=== PATIENT | female | born 1960 | race Caucasian/White ===

== ENCOUNTER 2021-12-20 13:38 | Emergency (ER) | payer BC, OTHER ==
[2021-12-20] MEDS ORDERED: FAMOTIDINE 20 MG (PEPCID) TABLET PO ONE (14:15)
[2021-12-20] MEDS ORDERED: predniSONE 20 MG TAB PO ONE (14:15)
[2021-12-20] MEDS ORDERED: IOHEXOL 350 MG/ML 100 ML (OMNIPAQUE 350) VIAL IV ONE (15:30)
[2021-12-20] MEDS ORDERED: NS 100 ML (IVPB) BAG IV ONE (15:30)
[2021-12-20] MEDS ORDERED: HOLD METFORMIN - RECEIVED CONTRAST 20 ML VIAL IV SCH (15:30)
--- NOTE | 2021-12-20 15:39 | ED General ---
General Chief Complaint: Allergic Reaction Stated Complaint: ANAPHYLAXIS Nursing Triage Note: PT REPORTS SHE HAD AN ALLERGIC REACTION TO CLINDAMYCIN YESTERDAY. HER EYES HAD SWOLLEN SHUT AND HER THROAT FELT WEIRD. SHE WENT TO [facility] TODAY BECAUSSE HER THROAT STILL FEELS TIGHT AND THEY GAVE HER 50 MG OF BENADRYL AND A SHOT OF EPI. SHE BEGAN TO HAVE THE SHAKES AFTER THE EPI AND THEY WANTED HER TO MONITORED. Source of Information: Patient Exam Limitations: No Limitations History of Present Illness Date Seen by Provider: Dec 20, 2021 Time Seen by Provider: 14:25 Initial Comments Patient is a 61-year-old female with history of esophageal angioedema who presents with airway swelling requiring epinephrine injection prior to arrival. Patient reports neck fullness after starting new antibiotics 2 days ago. 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 On my office, the patient was given 50 mg of Benadryl followed by 1 dose of epinephrine given by an autoinjector 5 minutes prior to arrival. Patient reports tremors, palpitations and feeling uneasy consistent with prior epinephrine injections. She denies airway swelling at this time. No other acute symptoms or complaints. Timing/Duration: 1 Day Severity: Mild Modifying Factors: improves with Other Associated Systoms: Other Allergies and Home Medications Allergies Coded Allergies: Tetanus Vaccines and Toxoid (Verified Allergy, Unknown, 12/20/21) clindamycin (Verified Allergy, Unknown, 12/20/21) morphine (Verified Allergy, Unknown, 12/20/21) penicillin G (Verified Allergy, Unknown, 12/20/21) Patient Home Medication List Home Medication List Reviewed: Yes Review of Systems Review of Systems Constitutional: see HPI EENTM: see HPI Respiratory: see HPI Cardiovascular: see HPI Gastrointestinal: see HPI Genitourinary: see HPI Musculoskeletal: see HPI Skin: see HPI Psychiatric/Neurological: See HPI Hematologic/Lymphatic: See HPI Immunological/Allergic: see HPI All Other Systems Reviewed Negative Unless Noted: Yes Past Csdwmtk-Bekwyc-Acwzah Hx Patient Social History Tobacco Use?: No Use of E-Cig and/or Vaping dev: No Substance use?: No Alcohol Use?: No Pt feels they are or have been: No Past Medical History Surgery/Hospitalization HX: HYSTERECTOMY ANGIOEDEMA OF THE ESOPHAGUS ASTHMA Physical Exam Vital Signs Vital Signs - First Documented 12/20/21 13:40 Temp 36.2 Pulse 99 Resp 18 B/P (MAP) 146/68 (94) Pulse Ox 96 O2 Delivery Room Air Capillary Refill : Less Than 3 Seconds Height, Weight, BMI Height: '" Weight: lbs. oz. kg; BMI Method: General Appearance: No Apparent Distress, WD/WN Eyes: Bilateral Eye Normal Inspection, Bilateral Eye PERRL, Bilateral Eye EOMI HEENT: PERRL/EOMI, Normal ENT Inspection, Pharynx Normal Neck: Non Tender, Supple Respiratory: Chest Non Tender, Lungs Clear Cardiovascular: Regular Rate, Rhythm, No Edema Neurologic/Psychiatric: Alert, Oriented x3, No Motor/Sensory Deficits Progress/Results/Core Measures Suspected Sepsis SIRS Temperature: Pulse: 99 Respiratory Rate: 18 Laboratory Tests 12/20/21 15:37: White Blood Count 9.7 Blood Pressure 146 /68 Mean: 94 Laboratory Tests 12/20/21 15:37: Creatinine 0.88, Platelet Count 311, Total Bilirubin 0.2 Results/Orders Lab Results Laboratory Tests Test 12/20/21 15:37 Range/Units White Blood Count 9.7 4.3-11.0 10^3/uL Red Blood Count 4.61 3.80-5.11 10^6/uL Hemoglobin 13.4 11.5-16.0 g/dL Hematocrit 40 35-52 % Mean Corpuscular Volume 88 80-99 fL Mean Corpuscular Hemoglobin 29 25-34 pg Mean Corpuscular Hemoglobin Concent 33 32-36 g/dL Red Cell Distribution Width 13.5 10.0-14.5 % Platelet Count 311 130-400 10^3/uL Mean Platelet Volume 9.5 9.0-12.2 fL Immature Granulocyte % (Auto) 0 % Neutrophils (%) (Auto) 75 42-75 % Lymphocytes (%) (Auto) 20 12-44 % Monocytes (%) (Auto) 4 0-12 % Eosinophils (%) (Auto) 1 0-10 % Basophils (%) (Auto) 1 0-10 % Neutrophils # (Auto) 7.2 1.8-7.8 10^3/uL Lymphocytes # (Auto) 1.9 1.0-4.0 10^3/uL Monocytes # (Auto) 0.4 0.0-1.0 10^3/uL Eosinophils # (Auto) 0.1 0.0-0.3 10^3/uL Basophils # (Auto) 0.1 0.0-0.1 10^3/uL Immature Granulocyte # (Auto) 0.0 0.0-0.1 10^3/uL Sodium Level 141 135-145 MMOL/L Potassium Level 4.3 3.6-5.0 MMOL/L Chloride Level 104 98-107 MMOL/L Carbon Dioxide Level 27 21-32 MMOL/L Anion Gap 10 5-14 MMOL/L Blood Urea Nitrogen 18 7-18 MG/DL Creatinine 0.88 0.60-1.30 MG/DL Estimat Glomerular Filtration Rate 74 BUN/Creatinine Ratio 20 Glucose Level 99 70-105 MG/DL Calcium Level 9.7 8.5-10.1 MG/DL Corrected Calcium 9.3 8.5-10.1 MG/DL Total Bilirubin 0.2 0.1-1.0 MG/DL Aspartate Amino Transf (AST/SGOT) 27 5-34 U/L Alanine Aminotransferase (ALT/SGPT) 21 0-55 U/L Alkaline Phosphatase 87 40-136 U/L Total Protein 7.3 6.4-8.2 GM/DL Albumin 4.5 3.2-4.5 GM/DL My Orders Orders - ANGUS TURNER DO Famotidine Tablet (Pepcid Tablet) (12/20/21 14:15) Prednisone Tablet (Deltasone Tablet) (12/20/21 14:15) Cbc With Automated Diff (12/20/21 15:21) Comprehensive Metabolic Panel (12/20/21 15:21) Ct Neck (Soft Tissue) W (12/20/21 15:21) Iohexol Injection (Omnipaque 350 Mg/Ml 1 (12/20/21 15:30) Received Contrast (Hold Metformin- Contr (12/20/21 15:30) Ns (Ivpb) (Sodium Chloride 0.9% Ivpb Bag (12/20/21 15:30) Medications Given in ED Current Medications Medications Dose Ordered Sig/Mukesh Route Start Time Stop Time Status Last Admin Dose Admin Famotidine 40 mg ONCE ONCE PO 12/20/21 14:15 12/20/21 14:16 DC 12/20/21 14:14 40 MG Iohexol 100 ml ONCE ONCE IV 12/20/21 15:30 12/20/21 15:31 DC 12/20/21 16:17 75 ML Prednisone 40 mg ONCE ONCE PO 12/20/21 14:15 12/20/21 14:16 DC 12/20/21 14:14 40 MG Sodium Chloride 100 ml ONCE ONCE IV 12/20/21 15:30 12/20/21 15:31 DC 12/20/21 16:17 100 ML Vital Signs/I&O 12/20/21 13:40 Temp 36.2 Pulse 99 Resp 18 B/P (MAP) 146/68 (94) Pulse Ox 96 O2 Delivery Room Air Capillary Refill : Less Than 3 Seconds Blood Pressure Mean: 94 Departure Communication (Admissions) CT soft tissue neck: No abnl findings. Patient given steroids and monitored in the ED. No airway swelling on CT. R ecommendations are watching waiting and continued supportive care. Return precautions reviewed. Patient verbalizes understanding and agreement with dc instructions PTD. Impression Primary Impression: Angioedema Disposition: HOME, SELF-CARE Condition: Stable Departure-Patient Inst. Decision time for Depature: 16:59 Referrals: TESSY LOREDO MD (PCP) Primary Care Physician Patient Instructions: Angioedema Add. Discharge Instructions: You were evaluated in the ED for airway swelling. A CT scan was performed and doesn't show current swelling. Please continue daily steroids and follow up with your PCP as needed. Return to the ED if new or worsening symptoms. All discharge instructions reviewed with patient and/or family. Voiced understanding. ANGUS TURNER DO Dec 20, 2021 15:39
[2021-12-20 15:44] LABS: BASOPHILS # (AUTO) 0.1 10^3/uL (0.0-0.1); BASOPHILS % (AUTO) 1 % (0-10); EOSINOPHILS # (AUTO) 0.1 10^3/uL (0.0-0.3); EOSINOPHILS % (AUTO) 1 % (0-10); HEMATOCRIT 40 % (35-52); HEMOGLOBIN 13.4 g/dL (11.5-16.0); LYMPHOCYTES # (AUTO) 1.9 10^3/uL (1.0-4.0); LYMPHOCYTES % (AUTO) 20 % (12-44); MEAN CORPUSCULAR HEMOGLOBIN 29 pg (25-34); MEAN CORPUSCULAR HGB CONC 33 g/dL (32-36); MEAN CORPUSCULAR VOLUME 88 fL (80-99); MEAN PLATELET VOLUME 9.5 fL (9.0-12.2); MONOCYTES # (AUTO) 0.4 10^3/uL (0.0-1.0); MONOCYTES % (AUTO) 4 % (0-12); NEUTROPHILS # (AUTO) 7.2 10^3/uL (1.8-7.8); NEUTROPHILS % (AUTO) 75 % (42-75); PLATELET COUNT 311 10^3/uL (130-400); WHITE BLOOD COUNT 9.7 10^3/uL (4.3-11.0)
[2021-12-20 16:03] LABS: ALBUMIN 4.5 GM/DL (3.2-4.5); BILIRUBIN,TOTAL 0.2 MG/DL (0.1-1.0); CALCIUM 9.7 MG/DL (8.5-10.1); CREATININE SERUM 0.88 MG/DL (0.60-1.30); POTASSIUM 4.3 MMOL/L (3.6-5.0); TOTAL PROTEIN 7.3 GM/DL (6.4-8.2)
--- NOTE | 2021-12-20 16:41 | Diagnostic Imaging Report ---
PROCEDURE: CT neck soft tissue with contrast. TECHNIQUE: Multiple contiguous axial images were obtained through the neck after the administration of contrast. Auto Exposure Controls were utilized during the CT exam to meet ALARA standards for radiation dose reduction. INDICATION: Allergic reaction to antibiotic. Hoarse voice. COMPARISON: None available. FINDINGS: The visualized intracranial contents are unremarkable without mass effect or abnormal enhancement. The visualized portions of the orbits are unremarkable. The visualized mastoids and paranasal sinuses are clear. The posterior nasopharynx and oropharynx are symmetric. There is no displacement of the parapharyngeal fat planes. The base of the tongue appears appropriate. There is no abnormal process evident within the prevertebral or retropharyngeal space. There is no thickening of the epiglottis. The vallecula and piriform sinuses are aerated. The vocal folds appear symmetric. There are no CT findings to suggest significant laryngeal edema. The parotid, submandibular, and thyroid glands are unremarkable. There are no pathologically enlarged cervical lymph nodes. The vascular structures of the neck are unremarkable. The lung apices are clear. There is no acute cervical spine abnormality. There are multilevel endplate changes and facet arthropathy. IMPRESSION: 1. No high-grade narrowing evident of the airway. There is no significant laryngeal edema evident. There is no thickening of the epiglottis or findings of an abnormal process in the prevertebral or retropharyngeal space. Dictated by: Dictated on workstation # [id number]
[2021-12-20 16:57] VITALS: BP 124/72
== END 2021-12-20 17:07 | disposition home or self-care (01) ==
LOC: ER FS 13:40
DX: T78.3XXA Angioneurotic edema, initial encounter (principal); Z28.310 Unvaccinated for COVID-19
CPT/HCPCS: 36415; 70491; 80053; 85025; Q9967

== ENCOUNTER 2021-12-21 10:43 | Emergency (ER) | payer BC ==
--- NOTE | 2021-12-21 10:46 | ED General ---
General Stated Complaint: SOB; TREMORS; NAUSEA History of Present Illness Date Seen by Provider: Dec 21, 2021 Time Seen by Provider: 10:47 Initial Comments 61-year-old female with PMH of esophageal angioedema, is here with complaints of ongoing SOB, intermittent nausea which began yesterday. Patient was also in the ER yesterday for the same complaints and was given prednisone, Benadryl, Pepcid, and EpiPen. The work-up in the ER yesterday was normal with stable vitals. Patient has been on her second round of doxycycline for sinusitis. In the ER today patient's vitals are normal and patient is able to speak in clear coherent sentences without any respiratory distress. Denies itching, fever, chills, palpitations, chest pain, dizziness, rashes, diarrhea, vomiting, abdominal pain. Allergies and Home Medications Allergies Coded Allergies: Tetanus Vaccines and Toxoid (Verified Allergy, Unknown, 12/20/21) clindamycin (Verified Allergy, Unknown, 12/20/21) morphine (Verified Allergy, Unknown, 12/20/21) penicillin G (Verified Allergy, Unknown, 12/20/21) Patient Home Medication List Home Medication List Reviewed: Yes Review of Systems Review of Systems Constitutional: no symptoms reported EENTM: no symptoms reported Respiratory: short of breath Cardiovascular: chest pain Gastrointestinal: no symptoms reported Genitourinary: no symptoms reported Musculoskeletal: no symptoms reported Skin: no symptoms reported Psychiatric/Neurological: No Symptoms Reported Hematologic/Lymphatic: No Symptoms Reported Immunological/Allergic: no symptoms reported Past Httelyh-Prwsum-Magjqf Hx Past Medical History Surgery/Hospitalization HX: HYSTERECTOMY ANGIOEDEMA OF THE ESOPHAGUS ASTHMA Physical Exam Vital Signs Vital Signs - First Documented 12/21/21 11:09 Temp 36.4 Pulse 108 Resp 18 B/P (MAP) 124/64 (84) Pulse Ox 99 O2 Delivery Room Air Capillary Refill : Height, Weight, BMI Height: '" Weight: lbs. oz. kg; BMI Method: General Appearance: No Apparent Distress, WD/WN, Anxious HEENT: PERRL/EOMI Neck: Full Range of Motion, Normal Inspection, Non Tender, Supple Respiratory: Chest Non Tender, Lungs Clear, Normal Breath Sounds, No Accessory Muscle Use, No Respiratory Distress Cardiovascular: Regular Rate, Rhythm, No Edema Gastrointestinal: Normal Bowel Sounds, Non Tender, Soft Neurologic/Psychiatric: Alert, Oriented x3, No Motor/Sensory Deficits Skin: Normal Color, Warm/Dry Progress/Results/Core Measures Suspected Sepsis SIRS Temperature: Pulse: Respiratory Rate: Laboratory Tests 12/21/21 11:00: White Blood Count 13.1H Blood Pressure / Mean: Laboratory Tests 12/21/21 11:00: Creatinine 0.77, INR Comment 0.9, Platelet Count 330, Total Bilirubin 0.3 Results/Orders Lab Results Laboratory Tests Test 12/21/21 11:00 Range/Units White Blood Count 13.1 H 4.3-11.0 10^3/uL Red Blood Count 4.74 3.80-5.11 10^6/uL Hemoglobin 13.7 11.5-16.0 g/dL Hematocrit 41 35-52 % Mean Corpuscular Volume 87 80-99 fL Mean Corpuscular Hemoglobin 29 25-34 pg Mean Corpuscular Hemoglobin Concent 33 32-36 g/dL Red Cell Distribution Width 13.7 10.0-14.5 % Platelet Count 330 130-400 10^3/uL Mean Platelet Volume 10.2 9.0-12.2 fL Immature Granulocyte % (Auto) 1 % Neutrophils (%) (Auto) 90 H 42-75 % Lymphocytes (%) (Auto) 9 L 12-44 % Monocytes (%) (Auto) 1 0-12 % Eosinophils (%) (Auto) 0 0-10 % Basophils (%) (Auto) 0 0-10 % Neutrophils # (Auto) 11.8 H 1.8-7.8 10^3/uL Lymphocytes # (Auto) 1.1 1.0-4.0 10^3/uL Monocytes # (Auto) 0.1 0.0-1.0 10^3/uL Eosinophils # (Auto) 0.0 0.0-0.3 10^3/uL Basophils # (Auto) 0.0 0.0-0.1 10^3/uL Immature Granulocyte # (Auto) 0.1 0.0-0.1 10^3/uL Neutrophils % (Manual) 86 % Lymphocytes % (Manual) 9 % Monocytes % (Manual) 1 % Band Neutrophils 4 % Platelet Estimate NORMAL Blood Morphology Comment NORMAL Prothrombin Time 12.4 12.2-14.7 SEC INR Comment 0.9 0.8-1.4 Activated Partial Thromboplast Time 28 24-35 SEC D-Dimer 0.28 0.00-0.49 UG/ML Sodium Level 140 135-145 MMOL/L Potassium Level 5.0 3.6-5.0 MMOL/L Chloride Level 102 98-107 MMOL/L Carbon Dioxide Level 23 21-32 MMOL/L Anion Gap 15 H 5-14 MMOL/L Blood Urea Nitrogen 20 H 7-18 MG/DL Creatinine 0.77 0.60-1.30 MG/DL Estimat Glomerular Filtration Rate 87 BUN/Creatinine Ratio 26 Glucose Level 131 H 70-105 MG/DL Calcium Level 9.8 8.5-10.1 MG/DL Corrected Calcium 8.5-10.1 MG/DL Total Bilirubin 0.3 0.1-1.0 MG/DL Aspartate Amino Transf (AST/SGOT) 33 5-34 U/L Alanine Aminotransferase (ALT/SGPT) 23 0-55 U/L Alkaline Phosphatase 96 40-136 U/L Troponin I < 0.30 <0.30 NG/ML Pro-B-Type Natriuretic Peptide 83.3 <125.0 PG/ML Total Protein 8.0 6.4-8.2 GM/DL Albumin 4.8 H 3.2-4.5 GM/DL Influenza Type A (RT-PCR) Not Detected Not Detecte Influenza Type B (RT-PCR) Not Detected Not Detecte SARS-CoV-2 RNA (RT-PCR) Not Detected Not Detecte My Orders Orders - OBEY RIZO MD Cbc And Manual Diff (12/21/21 11:04) Comprehensive Metabolic Panel (12/21/21 11:04) Troponin I Fs (12/21/21 11:04) Covid 19 Inhouse Test (12/21/21 11:04) Influenza A And B By Pcr (12/21/21 11:04) Ekg Tracing (12/21/21 11:04) Fibrin Degradation Products (12/21/21 11:14) Protime With Inr (12/21/21 11:14) Partial Thromboplastin Time (12/21/21 11:14) Probnp Fs (12/21/21 11:14) Chest 1 View Ap/Pa Only (12/21/21 11:14) Ct Chest/Abdomen/Pelvis W (12/21/21 11:41) Iohexol Injection (Omnipaque 350 Mg/Ml 1 (12/21/21 13:00) Received Contrast (Hold Metformin- Contr (12/21/21 13:00) Sodium Chloride Flush (Catheter Flush Sy (12/21/21 13:00) Ns (Ivpb) (Sodium Chloride 0.9% Ivpb Bag (12/21/21 13:00) Medications Given in ED Current Medications Medications Dose Ordered Sig/Mukesh Route Start Time Stop Time Status Last Admin Dose Admin Iohexol 100 ml ONCE ONCE IV 12/21/21 13:00 12/21/21 13:01 DC 12/21/21 12:55 100 ML Sodium Chloride 10 ml NEEDED PRN IV 12/21/21 13:00 12/21/21 12:55 10 ML Sodium Chloride 100 ml ONCE ONCE IV 12/21/21 13:00 12/21/21 13:01 DC 12/21/21 12:55 100 ML Vital Signs/I&O 12/21/21 11:09 Temp 36.4 Pulse 108 Resp 18 B/P (MAP) 124/64 (84) Pulse Ox 99 O2 Delivery Room Air Capillary Refill : Progress Note : Progress Note 1. ESOPHAGEAL ANGIOEDEMA: - CT CHEST: normal - CT NECK yesterday normal - Pt has an epi pen at home, and was discharged yesterday from ER with Prednisone, Benadryl, epi pen. - Vitals in ER stable without hypoxia or respiratory distress, Pharynx normal with no pharyngeal or oral swelling. - Dexamethasone 10mg iv in ER - Follow up with PCP and allergy clinic within 3 to 7 days, will need C1 esterase level checked in clinic - Advised to continue with Benadryl, prednisone, and pepcid, and use of epipen as needed. Adived to return to ER if symptoms worsening. -The patient was seen in the ED, and treated appropriately to presentation at a specific point in time. Patient is informed that there is a possibility that disease and illness can evolve and change in acuity rapidly or slowly after patient is discharged from the ER. Precautionary advice given to the patient for immediate return to ER if symptoms worsen or do not resolve, and to seek emergency care sooner rather than later. Pt also advised on the importance of PCP follow up and compliance with management and follow up plan with PCP and/or specialist, as this is part of the management plan. Pt verbally expressed understanding. Diagnostic Imaging Diagonstic Imaging: Xray, CT Plain Films/CT/US/NM/MRI: chest Comments [facility] [place], [place] NAME: DAEVY BONILLA [facility] REC#: [id number] PT STATUS: REG ER : 1960 PHYSICIAN: OBEY RIZO MD ADMIT DATE: 12/21/21/ER FS Draft Date of Exam:12/21/21 CT CHEST/ABDOMEN/PELVIS W PROCEDURE: CT chest, abdomen, and pelvis with contrast. TECHNIQUE: Multiple contiguous axial images were obtained through the chest, abdomen, and pelvis after the administration of intravenous contrast. Auto Exposure Controls were utilized during the CT exam to meet ALARA standards for radiation dose reduction. INDICATION: Dyspnea, generalized abdominal pain. Angioedema of the esophagus evaluation. COMPARISON: CTA neck performed concurrently FINDINGS: CT CHEST: No abnormal wall thickening of the esophagus. No abnormality of the trachea. There is no pneumonia or edema. No suspicious pulmonary nodules. No pleural effusion or pneumothorax. Thyroid is normal. No supraclavicular or axillary lymphadenopathy. No mediastinal or hilar lymphadenopathy. Heart is normal in size without pericardial effusion. Normal caliber thoracic aorta without dissection. Osseous structures of the chest show no acute abnormality. CT ABDOMEN AND PELVIS: No free intraperitoneal air or fluid. The liver, spleen, pancreas and adrenals are normal. No radiopaque gallstones or biliary duct dilatation. No adrenal mass. No renal mass or obstructive uropathy. No renal or ureteral stones. The urinary bladder is normally filled without wall thickening. Sigmoid colon diverticulosis without surrounding inflammatory change to indicate diverticulitis. Normal caliber abdominal aorta. No bowel obstruction. No worrisome focal osseous lesions. Grade 1 anterolisthesis of L5 on S1 due to chronic bilateral pars defects. IMPRESSION: 1. No acute abnormality in the chest, abdomen or pelvis. 2. No abnormal wall thickening of the esophagus. 3. Colonic diverticulosis without diverticulitis. Departure Impression Primary Impression: History of angioedema Disposition: 01 HOME, SELF-CARE Condition: Stable Departure-Patient Inst. Referrals: TESSY LOREDO MD (PCP) Primary Care Physician Patient Instructions: Angioedema, Angioedema (DC), Angioedema Caused by JORGE Inhibitor Medicines Add. Discharge Instructions: - Advised to continue with Benadryl, prednisone, and pepcid, and use of epipen as needed. Adived to return to ER if symptoms worsening. - Follow up with PCP and allergy clinic within 3 to 7 days, will need C1 esterase level checked in clinic - [facility]: office number: [phone]. Call for appointment. OBEY RIZO MD Dec 21, 2021 10:46
[2021-12-21 11:15] LABS: BASOPHILS % (AUTO) 0 % (0-10); EOSINOPHILS % (AUTO) 0 % (0-10); HEMATOCRIT 41 % (35-52); HEMOGLOBIN 13.7 g/dL (11.5-16.0); LYMPHOCYTES # (AUTO) 1.1 10^3/uL (1.0-4.0); LYMPHOCYTES % (AUTO) 9 % (12-44); MEAN CORPUSCULAR HEMOGLOBIN 29 pg (25-34); MEAN CORPUSCULAR HGB CONC 33 g/dL (32-36); MEAN CORPUSCULAR VOLUME 87 fL (80-99); MEAN PLATELET VOLUME 10.2 fL (9.0-12.2); MONOCYTES # (AUTO) 0.1 10^3/uL (0.0-1.0); MONOCYTES % (AUTO) 1 % (0-12); NEUTROPHILS # (AUTO) 11.8 10^3/uL (1.8-7.8); NEUTROPHILS % (AUTO) 90 % (42-75); PLATELET COUNT 330 10^3/uL (130-400); WHITE BLOOD COUNT 13.1 10^3/uL (4.3-11.0)
--- NOTE | 2021-12-21 11:28 | Diagnostic Imaging Report ---
INDICATION: chest pain COMPARISON: None FINDINGS: Single frontal view of the chest demonstrates normal heart size and pulmonary vascularity. The lungs are well aerated and clear. No large pleural effusion or pneumothorax is seen. The visualized osseous structures show no acute abnormalities. IMPRESSION: 1. No acute cardiopulmonary process. Dictated by: Dictated on workstation # [id number]
[2021-12-21 11:42] LABS: BAND NEUTROPHILS 4 %; NEUTROPHILS % (MANUAL) 86 %
[2021-12-21 11:43] LABS: LYMPHOCYTES % (MANUAL) 9 %; MONOCYTES % (MANUAL) 1 %; PLATELET ESTIMATE NORMAL; RBC MORPH NORMAL
[2021-12-21 11:54] LABS: BUN/CREATININE RATIO 26; CALCIUM 9.8 MG/DL (8.5-10.1); CARBON DIOXIDE 23 MMOL/L (21-32); CHLORIDE 102 MMOL/L (98-107); CREATININE SERUM 0.77 MG/DL (0.60-1.30); GFR ESTIMATED 87; GLUCOSE 131 MG/DL (70-105); SODIUM 140 MMOL/L (135-145)
[2021-12-21 11:55] LABS: ALANINE AMINOTRANSFERASE 23 U/L (0-55); ALBUMIN 4.8 GM/DL (3.2-4.5); ALKALINE PHOSPHATASE 96 U/L (40-136); BILIRUBIN,TOTAL 0.3 MG/DL (0.1-1.0)
[2021-12-21 12:18] LABS: FIBRIN DEGRADATION PRODUCTS 0.28 UG/ML (0.00-0.49); INR 0.9 (0.8-1.4); PROTHROMBIN TIME PATIENT 12.4 SEC (12.2-14.7)
[2021-12-21] MEDS ORDERED: HOLD METFORMIN - RECEIVED CONTRAST 20 ML VIAL IV SCH (13:00)
[2021-12-21] MEDS ORDERED: CATHETER FLUSH 10 ML SYR IV PRN (13:00)
[2021-12-21] MEDS ORDERED: IOHEXOL 350 MG/ML 100 ML (OMNIPAQUE 350) VIAL IV ONE (13:00)
[2021-12-21] MEDS ORDERED: NS 100 ML (IVPB) BAG IV ONE (13:00)
--- NOTE | 2021-12-21 13:49 | Diagnostic Imaging Report ---
PROCEDURE: CT chest, abdomen, and pelvis with contrast. TECHNIQUE: Multiple contiguous axial images were obtained through the chest, abdomen, and pelvis after the administration of intravenous contrast. Auto Exposure Controls were utilized during the CT exam to meet ALARA standards for radiation dose reduction. INDICATION: Dyspnea, generalized abdominal pain. Angioedema of the esophagus evaluation. COMPARISON: CTA neck performed concurrently FINDINGS: CT CHEST: No abnormal wall thickening of the esophagus. No abnormality of the trachea. There is no pneumonia or edema. No suspicious pulmonary nodules. No pleural effusion or pneumothorax. Thyroid is normal. No supraclavicular or axillary lymphadenopathy. No mediastinal or hilar lymphadenopathy. Heart is normal in size without pericardial effusion. Normal caliber thoracic aorta without dissection. Osseous structures of the chest show no acute abnormality. CT ABDOMEN AND PELVIS: No free intraperitoneal air or fluid. The liver, spleen, pancreas and adrenals are normal. No radiopaque gallstones or biliary duct dilatation. No adrenal mass. No renal mass or obstructive uropathy. No renal or ureteral stones. The urinary bladder is normally filled without wall thickening. Sigmoid colon diverticulosis without surrounding inflammatory change to indicate diverticulitis. Normal caliber abdominal aorta. No bowel obstruction. No worrisome focal osseous lesions. Grade 1 anterolisthesis of L5 on S1 due to chronic bilateral pars defects. IMPRESSION: 1. No acute abnormality in the chest, abdomen or pelvis. 2. No abnormal wall thickening of the esophagus. 3. Colonic diverticulosis without diverticulitis. Dictated by: Dictated on workstation # [id number]
[2021-12-21 14:36] VITALS: BP 130/62
== END 2021-12-21 14:38 | disposition home or self-care (01) ==
LOC: EDUNIT# 10:43 → ER FS 10:44
DX: Z87.2 Personal history of diseases of the skin and subcutaneous tissue (principal); Z20.822 Contact with and (suspected) exposure to COVID-19; Z28.310 Unvaccinated for COVID-19
CPT/HCPCS: 36415; 71045; 71260; 74177; 80053; 83880; 84484; 85007; 85027; 85379; 85610; 85730; 87636; 93005; Q9967